=== PATIENT | female | born 1970 | race Asian ===

== ENCOUNTER 2018-04-07 21:02 | Observation (INO) | payer MEDICAID ==
[~2018-04-07] VITALS: Ht 160 cm; Wt 67.6 kg
[2018-04-08 00:58] LABS: Eosinophils # (auto) 0.2 uL; Hemoglobin 8.9 g/dL (12.2-16.2); Lymphocytes # (auto) 3.2 uL; Mean Corpuscular Volume 65.9 fL (80.0-100.0); Nucleated Red Blood Cells % 0.1 %; White Blood Cell 9.6 10^3/uL (4.4-10.8)
[2018-04-08 01:00] LABS: Basophils # (auto) 0 uL; Basophils % (auto) 0.4 % (0.0-2.0); Eosinophils % (auto) 2.2 % (0.0-7.0); Hematocrit 28.9 % (36.0-46.0); Lymphocytes % (auto) 33.6 % (10.0-50.0); Mean Corpuscular Hemoglobin 20.3 pg (28.0-32.0); Mean Corpuscular Hgb Conc. 30.7 g/dL (32.0-36.0); Monocytes # (auto) 0.6 uL; Monocytes % (auto) 6.7 % (0.0-12.0); Neutrophils # (auto) 5.5 uL; Neutrophils % (auto) 57.1 % (37.0-80.0); Platelet Count (auto) 331 10^3/uL (140-450); Red Blood Cells 4.39 10^6/uL (4.0-5.20); Red Cell Distribution Width 18.7 % (11.8-14.3)
[2018-04-08 01:16] LABS: INR 0.95 (0.9-1.15); Partial Thromboplastin Time 25.4 sec (23.78-33.04); Prothrombin Time 10.2 sec (9.27-12.13)
[2018-04-08 01:18] LABS: Alanine Aminotransferase 15 U/L (13-56); Albumin 3.8 g/dL (3.4-5.0); Anion Gap 10 (5-15); Aspartate Aminotransferase 20 U/L (15-37); BUN/Creatinine Ratio 13.8; Blood Urea Nitrogen 13 mg/dL (7-18); Calcium 9.1 mg/dL (8.5-10.1); Carbon Dioxide 25 mmol/L (21-32); Chloride 105 mmol/L (98-107); GFR African American 82 mL/min; GFR Non-African American 68 mL/min; Glucose 83 mg/dL (74-106); Magnesium 2.3 mg/dL (1.6-2.6); Potassium 3.9 mmol/L (3.5-5.1); Sodium 140 mmol/L (136-145)
[2018-04-08 01:23] LABS: Alkaline Phosphatase 58 U/L (45-117); Bilirubin, Total 0.4 mg/dL (0.2-1.0); Total Protein 8.6 g/dL (6.4-8.2)
[2018-04-08 06:16] VITALS: BP 110/69
== END 2018-04-08 06:12 | disposition home or self-care (01) | DRG 58 ==
LOC: ER 21:02 → OVERFLOW 21:03 → ER 04-08 06:12
PROVIDERS: ADMIT Emergency Medicine; ATTEND Emergency Medicine
DX: R25.1 Tremor, unspecified (principal); E23.0 Hypopituitarism; E23.6 Other disorders of pituitary gland; G56.03 Carpal tunnel syndrome, bilateral upper limbs
CPT/HCPCS: 36415; 70450; 71045; 72125; 80053; 81025; 83735; 84443; 84484; 85025; 85379; 85610; 85730; 99285; G0378

== ENCOUNTER 2018-08-29 12:07 | Observation (INO) | payer MEDICAID ==
[~2018-08-29] VITALS: Ht 157.5 cm; Wt 64.4 kg
[2018-08-29 13:00] LABS: Urine Bacteria FEW /hpf (None Seen); Urine Blood Negative /uL (Negative); Urine Mucus FEW (None Seen); Urine Specific Gravity 1.023 (1.001-1.035); Urine WBC 4 /hpf (0 - 5)
[2018-08-29 13:05] LABS: Basophils # (auto) 0 uL; Monocytes # (auto) 0.5 uL; Neutrophils # (auto) 2.8 uL; Nucleated Red Blood Cells % 0.1 %; Red Blood Cells 4.47 10^6/uL (4.0-5.20)
[2018-08-29 13:06] LABS: Basophils % (auto) 0.7 % (0.0-2.0); Eosinophils # (auto) 0.2 uL; Eosinophils % (auto) 3.2 % (0.0-7.0); Hematocrit 28.9 % (36.0-46.0); Lymphocytes # (auto) 1.7 uL; Mean Corpuscular Volume 64.7 fL (80.0-100.0); Monocytes % (auto) 9.8 % (0.0-12.0); Neutrophils % (auto) 53.3 % (37.0-80.0); Platelet Count (auto) 268 10^3/uL (140-450); Red Cell Distribution Width 19.2 % (11.8-14.3); White Blood Cell 5.2 10^3/uL (4.4-10.8)
[2018-08-29 13:19] LABS: Albumin 3.6 g/dL (3.4-5.0); BUN/Creatinine Ratio 13.5; Calcium 9.1 mg/dL (8.5-10.1); Potassium 3.9 mmol/L (3.5-5.1)
[2018-08-29 13:21] LABS: Bilirubin, Total 0.4 mg/dL (0.2-1.0); Total Protein 7.9 g/dL (6.4-8.2)
[2018-08-29] MEDS: SODIUM CHLORIDE 0.9% 1,000 ML IV ONE (13:45)
[2018-08-29 14:54] LABS: Amylase 108 U/L (25-115); Lipase 225 U/L (73-393)
[2018-08-29 14:59] LABS: Magnesium 2.1 mg/dL (1.6-2.6)
[2018-08-29] MEDS: cefTRIAXone 1GM/50ML D5W 50 ML IV ONE (15:39)
[2018-08-29 16:28] VITALS: BP 124/82
== END 2018-08-29 17:00 | disposition home or self-care (01) | DRG 463 ==
LOC: ER 12:07 → OVERFLOW 12:08 → ER 17:00
PROVIDERS: ADMIT Family Medicine; ATTEND Family Medicine
DX: N30.00 Acute cystitis without hematuria (principal); D50.9 Iron deficiency anemia, unspecified; R10.9 Unspecified abdominal pain
CPT/HCPCS: 36415; 71045; 74176; 80053; 81001; 81025; 82150; 82962; 83690; 83735; 83880; 84484; 85025; 93005; 96365; 99285; G0378; J0696; J7030

== ENCOUNTER 2018-09-01 10:39 | Emergency (ER) | payer MEDICAID ==
[~2018-09-01] VITALS: Ht 152.4 cm; Wt 64.4 kg
[2018-09-01 11:27] LABS: Basophils # (auto) 0 uL; Eosinophils # (auto) 0.1 uL; Hemoglobin 9.4 g/dL (12.2-16.2); Mean Corpuscular Hemoglobin 19.7 pg (28.0-32.0); Monocytes # (auto) 0.5 uL; White Blood Cell 5.6 10^3/uL (4.4-10.8)
[2018-09-01 11:29] LABS: Basophils % (auto) 0.8 % (0.0-2.0); Eosinophils % (auto) 2.2 % (0.0-7.0); Hematocrit 30.9 % (36.0-46.0); Lymphocytes # (auto) 1.6 uL; Lymphocytes % (auto) 27.9 % (10.0-50.0); Mean Corpuscular Hgb Conc. 30.4 g/dL (32.0-36.0); Mean Corpuscular Volume 64.8 fL (80.0-100.0); Monocytes % (auto) 8.9 % (0.0-12.0); Neutrophils # (auto) 3.4 uL; Neutrophils % (auto) 60.2 % (37.0-80.0); Nucleated Red Blood Cells % 0.2 %; Platelet Count (auto) 283 10^3/uL (140-450); Red Blood Cells 4.76 10^6/uL (4.0-5.20); Red Cell Distribution Width 19.4 % (11.8-14.3)
[2018-09-01 11:47] LABS: Albumin 3.7 g/dL (3.4-5.0); Anion Gap 5 (5-15); BUN/Creatinine Ratio 16.8; Blood Urea Nitrogen 22 mg/dL (7-18); Calcium 9.2 mg/dL (8.5-10.1); Carbon Dioxide 26 mmol/L (21-32); Chloride 105 mmol/L (98-107); GFR African American 56 mL/min; GFR Non-African American 46 mL/min; Glucose 88 mg/dL (74-106); Potassium 4.6 mmol/L (3.5-5.1); Sodium 136 mmol/L (136-145)
[2018-09-01 11:56] LABS: Alanine Aminotransferase 20 U/L (13-56); Alkaline Phosphatase 63 U/L (45-117); Aspartate Aminotransferase 20 U/L (15-37); Bilirubin, Total < 0.1 mg/dL (0.2-1.0); Total Protein 8.5 g/dL (6.4-8.2)
[2018-09-01 12:07] LABS: Urine Bacteria FEW /hpf (None Seen); Urine Blood TRACE /uL (Negative); Urine Mucus FEW (None Seen); Urine Specific Gravity 1.024 (1.001-1.035); Urine WBC 1 /hpf (0 - 5)
[2018-09-01] MEDS ORDERED: KETOROLAC TROMETH 30 MG/ML 1ML VIAL IV ONE (12:15)
[2018-09-01] MEDS ORDERED: ONDANSETRON HCL 4 MG/2 ML VIAL IV ONE (12:15)
[2018-09-01] MEDS ORDERED: SODIUM CHLORIDE 0.9% 1,000 ML IV ONE ×2 (13:00)
[2018-09-01] MEDS ORDERED: IOHEXOL 300 MG/ML 100ML BOTTLE IJ ONE (13:49)
[2018-09-01 15:30] VITALS: BP 116/78
== END 2018-09-01 15:39 | disposition home or self-care (01) ==
LOC: ER 10:39
DX: R10.11 Right upper quadrant pain (principal); R10.31 Right lower quadrant pain; D50.9 Iron deficiency anemia, unspecified; R11.0 Nausea
CPT/HCPCS: 36415; 74177; 80053; 81001; 84702; 85025; 96374; 96375; 99285; J1885; J2405; J7030; Q9967; 96361

== ENCOUNTER 2019-02-26 20:46 | Emergency (ER) | payer MEDICAID ==
[~2019-02-26] VITALS: Ht 157.5 cm; Wt 65.8 kg
[2019-02-26 22:35] LABS: Basophils # (auto) 0 uL; Basophils % (auto) 0.6 % (0.0-2.0); Eosinophils # (auto) 0.1 uL; Eosinophils % (auto) 1.6 % (0.0-7.0); Hematocrit 38.2 % (36.0-46.0); Hemoglobin 12.9 g/dL (12.2-16.2); Lymphocytes # (auto) 2.4 uL; Lymphocytes % (auto) 31.7 % (10.0-50.0); Mean Corpuscular Hemoglobin 29.7 pg (28.0-32.0); Mean Corpuscular Hgb Conc. 33.7 g/dL (32.0-36.0); Mean Corpuscular Volume 88.2 fL (80.0-100.0); Monocytes # (auto) 0.5 uL; Monocytes % (auto) 6.2 % (0.0-12.0); Neutrophils # (auto) 4.5 uL; Neutrophils % (auto) 59.9 % (37.0-80.0); Platelet Count (auto) 264 10^3/uL (140-450); Red Blood Cells 4.33 10^6/uL (4.0-5.20); Red Cell Distribution Width 13.3 % (11.8-14.3); White Blood Cell 7.5 10^3/uL (4.4-10.8)
[2019-02-26 22:40] LABS: Calcium 8.9 mg/dL (8.5-10.1); Potassium 5.1 mmol/L (3.5-5.1)
[2019-02-26 22:44] LABS: BUN/Creatinine Ratio 10.4; Bilirubin, Total 0.5 mg/dL (0.2-1.0); Total Protein 8.2 g/dL (6.4-8.2)
[2019-02-26 23:00] LABS: INR 0.95 (0.9-1.15); Partial Thromboplastin Time 26.4 sec (23.78-33.04); Prothrombin Time 10.2 sec (9.27-12.13)
[2019-02-27 07:14] VITALS: BP 129/73
[2019-02-27 07:58] LABS: Urine Bacteria FEW /hpf (None Seen); Urine Blood Negative /uL (Negative); Urine Specific Gravity 1.015 (1.001-1.035); Urine WBC 1 /hpf (0 - 5)
== END 2019-02-27 08:52 | disposition home or self-care (01) ==
LOC: ER 20:46
DX: S90.02XA Contusion of left ankle, initial encounter (principal); X58.XXXA Exposure to other specified factors, initial encounter; Y93.89 Activity, other specified; Y99.8 Other external cause status; Y92.89 Other specified places as the place of occurrence of the external cause
CPT/HCPCS: 36415; 73610; 80053; 81001; 81025; 85025; 85610; 85730; 94761

== ENCOUNTER 2021-03-26 19:41 | Emergency (ER) | payer MEDICAID ==
[~2021-03-26] VITALS: Ht 160 cm; Wt 64.4 kg
[2021-03-26 19:41] VITALS: BP 127/83
[2021-03-26 20:32] LABS: Basophils # (auto) 0 10 ^3/uL (0-0.2); Basophils % (auto) 0.5 % (0.0-2.0); Eosinophils # (auto) 0.2 10 ^3/uL (0-0.8); Eosinophils % (auto) 3.1 % (0.0-7.0); Hematocrit 35.6 % (36.0-46.0); Hemoglobin 12.5 g/dL (12.2-16.2); Lymphocytes # (auto) 2.4 10 ^3/uL (0.4-5.4); Lymphocytes % (auto) 31.4 % (10.0-50.0); Mean Corpuscular Hgb Conc. 35.3 g/dL (32.0-36.0); Mean Corpuscular Volume 85.2 fL (80.0-100.0); Monocytes # (auto) 0.6 10 ^3/uL (0-1.3); Monocytes % (auto) 8.3 % (0.0-12.0); Neutrophils # (auto) 4.4 10 ^3/uL (1.6-8.6); Neutrophils % (auto) 56.7 % (37.0-80.0); Nucleated Red Blood Cells % 0.2 %; Platelet Count (auto) 236 10^3/uL (140-450); Red Blood Cells 4.18 10^6/uL (4.0-5.20); Red Cell Distribution Width 13.4 % (11.8-14.3); White Blood Cell 7.8 10^3/uL (4.4-10.8)
[2021-03-26 20:47] LABS: Albumin 3.7 g/dL (3.4-5.0); Calcium 9.3 mg/dL (8.5-10.1); Potassium 4.1 mmol/L (3.5-5.1)
[2021-03-26 20:55] LABS: BUN/Creatinine Ratio 12.8; Bilirubin, Total 0.5 mg/dL (0.2-1.0)
[2021-03-26] MEDS ORDERED: KETOROLAC TROMETH 60MG/2ML VIAL IM ONE (22:30)
== END 2021-03-26 22:57 | disposition home or self-care (01) ==
LOC: ER 19:41
DX: M79.662 Pain in left lower leg (principal); M79.661 Pain in right lower leg
CPT/HCPCS: 36415; 80053; 85025; 93970; 96372; 99284; J1885

== ENCOUNTER 2021-08-28 10:55 | Emergency (ER) | payer MEDICAID, OTHER ==
[~2021-08-28] VITALS: Ht 160 cm; Wt 65.8 kg
[2021-08-28 10:55] VITALS: BP 147/90
[2021-08-28] MEDS ORDERED: ONDA-144 PO (14:15)
[2021-08-28] MEDS ORDERED: PERCOT PO (14:15)
== END 2021-08-28 15:17 | disposition home or self-care (01) ==
LOC: ER 10:55
DX: S16.1XXA Strain of muscle, fascia and tendon at neck level, initial encounter (principal); Z86.2 Personal history of diseases of the blood and blood-forming organs and certain disorders involving the immune mechanism; X58.XXXA Exposure to other specified factors, initial encounter; Y93.89 Activity, other specified; Y92.89 Other specified places as the place of occurrence of the external cause; Y99.8 Other external cause status
CPT/HCPCS: 70450; 72125; 74176

== ENCOUNTER 2022-04-01 18:00 | Emergency (ER) | payer MEDICAID, OTHER ==
[~2022-04-01] VITALS: Ht 160 cm; Wt 65.8 kg
[~2022-04-01 18:00] MED LIST: ONDA-144 PO; PERCOT PO
[2022-04-01] MEDS ORDERED: KETOROLAC TROMETH 60MG/2ML VIAL IM ONE (19:00)
[2022-04-01 19:02] VITALS: BP 111/75
[2022-04-01] MEDS ORDERED: NAP500T PO (19:06)
== END 2022-04-01 19:59 | disposition home or self-care (01) ==
LOC: ER 18:00
DX: M79.10 Myalgia, unspecified site (principal); Z79.899 Other long term (current) drug therapy; V43.52XA Car driver injured in collision with other type car in traffic accident, initial encounter; Y93.89 Activity, other specified; Y92.410 Unspecified street and highway as the place of occurrence of the external cause; Y99.8 Other external cause status
CPT/HCPCS: 96372; 99283; J1885

== ENCOUNTER 2022-08-06 09:52 | Emergency (ER) | payer MEDICAID ==
[~2022-08-06] VITALS: Ht 157.5 cm; Wt 65.0 kg
[~2022-08-06 09:52] MED LIST changes: +NAP500T PO
[2022-08-06 15:07] VITALS: BP 138/77
== END 2022-08-06 15:09 | disposition home or self-care (01) ==
LOC: EDBD 09:52 → ER 09:52
DX: S09.90XA Unspecified injury of head, initial encounter (principal); M79.10 Myalgia, unspecified site; Z86.2 Personal history of diseases of the blood and blood-forming organs and certain disorders involving the immune mechanism; Z79.899 Other long term (current) drug therapy; W18.39XA Other fall on same level, initial encounter; Y93.89 Activity, other specified; Y92.89 Other specified places as the place of occurrence of the external cause; Y99.8 Other external cause status
CPT/HCPCS: 70450; 71250; 72192; 93005